=== PATIENT | female | born 1940 | race Caucasian/White ===

== ENCOUNTER → 2018-02-12 | Outpatient (CLI) | payer MEDICARE | END | disposition home or self-care (01) | LOC: RAH 08:31 | PROVIDERS: ATTEND Internal Medicine | DX: R92.8 Other abnormal and inconclusive findings on diagnostic imaging of breast (principal) | CPT/HCPCS: 77066 ==

== ENCOUNTER → 2018-02-16 | Outpatient (CLI) | payer MEDICARE | END | disposition home or self-care (01) | LOC: RAH 12:42 | PROVIDERS: ATTEND Internal Medicine | DX: M16.11 Unilateral primary osteoarthritis, right hip (principal) | CPT/HCPCS: 73502 ==

== ENCOUNTER 2018-09-18 12:27 | Observation (INO) | payer MEDICARE ==
[~2018-09-18] VITALS: Ht 170.2 cm; Wt 91.8 kg
[2018-09-18] MEDS ORDERED: SODIUM CHLORIDE 0.9% 1000ML 1,000 ML IV ONE (12:45)
[2018-09-18 13:05] LABS: BASOPHILS % (AUTO) 1.3 % (0.0-5.0); EOSINOPHILS % (AUTO) 4.6 % (0.0-8.0); HEMATOCRIT 39.7 % (36-48); LYMPHOCYTES % (AUTO) 38.3 % (21.0-51.0); MEAN CORPUSCULAR HEMOGLOBIN 30.2 pg (27.0-33.0); MEAN CORPUSCULAR HGB CONC 33.3 g/dL (32.0-36.0); MEAN CORPUSCULAR VOLUME 90.7 fL (79-99); MONOCYTES % (AUTO) 9.8 % (3.0-13.0); NUCLEATED RED BLOOD CELLS 0.1 % (0.0-0.19); PLATELET COUNT (AUTO) 205 K/uL (130-400); RED BLOOD CELL COUNT(AUTO) 4.38 MIL/uL (4.00-5.50); RED CELL DISTRIBUTION WIDTH 14.5 % (11.0-15.5); WHITE BLOOD COUNT (AUTO) 5.8 K/uL (4.8-10.8)
[2018-09-18 13:13] LABS: CREATININE 0.8 mg/dL (0.5-1.5); INR 0.95 (0.85-1.15); PARTIAL THROMBOPLASTIN TIME 26.4 SEC (26.3-35.5); POTASSIUM 4.2 mmol/L (3.5-5.1)
[2018-09-18 13:19] LABS: CREATINE KINASE, TOTAL 97 U/L (21-232); LDL DIRECT 84 mg/dL (0-99)
[2018-09-18 13:57] LABS: APPEARANCE,URINE Clear (CLEAR); BILIRUBIN,URINE Negative (NEGATIVE); COLOR,URINE Yellow (YELLOW); GLUCOSE, URINE (UA) Negative (NEGATIVE); KETONES,URINE Negative (NEGATIVE); LEUKOCYTE ESTERASE ,URINE Trace (NEGATIVE); NITRATE,URINE Negative (NEGATIVE); OCCULT BLOOD,URINE Negative (NEGATIVE); PH,URINE 5.5 (5.0-8.0); PROTEIN,URINE Negative (NEGATIVE)
[2018-09-18 14:05] LABS: AMPHET/METH SCREEN,URINE NEGATIVE (NEGATIVE); BARBITURATE SCREEN, URINE NEGATIVE (NEGATIVE); BENZODIAZEPINES SCREEN,URINE NEGATIVE (NEGATIVE); CANNABINOID SCREEN,URINE NEGATIVE (NEGATIVE); COCAINE SCREEN,URINE NEGATIVE (NEGATIVE); OPIATE SCREEN,URINE NEGATIVE (NEGATIVE); PHENCYCLIDINE SCREEN,URINE NEGATIVE (NEGATIVE)
[2018-09-18 14:21] LABS: RBC,URINE 0-1 /HPF (0-1); WBC,URINE 0-1 /HPF (0-1)
[2018-09-18 14:22] LABS: BACTERIA,URINE Few /HPF (None Seen)
[2018-09-18] MEDS ORDERED: LISI10TA7 PO (16:08)
[2018-09-18] MEDS ORDERED: LEVO75TA10 PO ×2 (16:11→16:13)
[2018-09-18] MEDS ORDERED: UBID30CA8 PO (16:11)
[2018-09-18] MEDS ORDERED: AEC81 PO (16:11)
[2018-09-18] MEDS ORDERED: DULO30CA52 PO (16:11)
[2018-09-18] MEDS ORDERED: OMEP-50 PO (16:11)
[2018-09-18] MEDS ORDERED: ATOR20TA65 PO (16:11)
[2018-09-18] MEDS ORDERED: METO-408 PO (16:11)
--- NOTE | 2018-09-18 21:00 | NUR ---
REPORT RECEIVED FROM MARGAUX LOPEZ.
[2018-09-18 21:10] VITALS: BP 190/82
--- NOTE | 2018-09-18 21:10 | NUR ---
PT ARRIVED FROM ER AT THIS TIME. PT IS STABLE. AMBULATORY. NO DISTRESS NOTED. AA03. PERRLA. NO NEURO DEFICITS. HOME MEDS PENDING. PT HAD EXPERIENCED SLURRED SPEECH AND LEFT SIDED WEAKNESS WHILE AT A [employer]. CURRENTLY EXPERIENCING NO ISSUES. NIH SCORE OF ZERO.
[2018-09-18 23:37] VITALS: BP 140/66
[2018-09-19 04:37] VITALS: BP 143/80
[2018-09-19 07:28] VITALS: BP 148/92
[2018-09-19] MEDS ORDERED: DULOXETINE HCL 30 MG CAP PO SCH (09:00)
[2018-09-19] MEDS ORDERED: LISINOPRIL 10 MG TABLET PO SCH (09:00)
[2018-09-19] MEDS ORDERED: PANTOPRAZOLE SODIUM 40 MG TABLET.DR PO PRN (09:00)
[2018-09-19] MEDS ORDERED: ASPIRIN 81 MG EC TAB PO SCH (09:00)
[2018-09-19] MEDS ORDERED: LEVOTHYROXINE 75 MCG TABLET PO SCH (09:06)
[2018-09-19] MEDS ORDERED: METOPROLOL TARTRATE 25 MG TAB PO SCH (09:07)
[2018-09-19] MEDS ORDERED: MAG HYDROX/AL HYDROX/SIMETH ES 30 ML SUSP UDCUP PO PRN (09:15)
[2018-09-19] MEDS ORDERED: ACETAMINOPHEN 325 MG TAB PO PRN ×2 (09:15)
[2018-09-19] MEDS ORDERED: LACTULOSE 20 GM/30 ML UDCUP PO PRN (09:15)
[2018-09-19] MEDS ORDERED: ONDANSETRON HCL 4 MG/2 ML VIAL IV PRN (09:15)
[2018-09-19 11:16] VITALS: BP 157/79
[2018-09-19] MEDS ORDERED: ATORVASTATIN CALCIUM 20 MG TABLET PO SCH (21:00)
== END 2018-09-19 12:58 | disposition home or self-care (01) ==
LOC: EDH 12:27 → EDHIP 13:35 → 2AH 21:04
PROVIDERS: ADMIT Internal Medicine; ATTEND Internal Medicine
DX: R47.01 Aphasia (principal); E03.9 Hypothyroidism, unspecified; E78.2 Mixed hyperlipidemia; E66.9 Obesity, unspecified; G31.9 Degenerative disease of nervous system, unspecified; G43.109 Migraine with aura, not intractable, without status migrainosus; G47.00 Insomnia, unspecified; E88.81 Metabolic syndrome and other insulin resistance; I12.9 Hypertensive chronic kidney disease with stage 1 through stage 4 chronic kidney disease, or unspecified chronic kidney disease; N18.2 Chronic kidney disease, stage 2 (mild); K21.9 Gastro-esophageal reflux disease without esophagitis; M19.90 Unspecified osteoarthritis, unspecified site; I65.23 Occlusion and stenosis of bilateral carotid arteries; F11.21 Opioid dependence, in remission; F32.9 Major depressive disorder, single episode, unspecified; F41.9 Anxiety disorder, unspecified; Z68.31 Body mass index [BMI] 31.0-31.9, adult; Z79.82 Long term (current) use of aspirin; Z90.710 Acquired absence of both cervix and uterus; Z96.641 Presence of right artificial hip joint; Z96.652 Presence of left artificial knee joint; Z98.1 Arthrodesis status; Z81.8 Family history of other mental and behavioral disorders; Z82.49 Family history of ischemic heart disease and other diseases of the circulatory system; Z82.5 Family history of asthma and other chronic lower respiratory diseases; Z79.899 Other long term (current) drug therapy; Z79.01 Long term (current) use of anticoagulants
CPT/HCPCS: 36415; 70450; 70551; 71045; 80048; 80305; 81001; 82550; 82948; 83721; 84484; 85025; 85610; 85730; 93005; 93880; 99291; G0378 ×23; J7030

== ENCOUNTER → 2019-12-15 | Outpatient (CLI) | payer MEDICARE ==
[~2019-12-15] MED LIST: AEC81 PO; ATOR20TA65 PO; DULO30CA52 PO; LEVO75TA10 PO; LISI10TA7 PO; METO-408 PO; OMEP20CA12 PO; UBID30CA8 PO
== END | disposition home or self-care (01) ==
LOC: RAH 12:33
PROVIDERS: ATTEND Internal Medicine
DX: Z12.31 Encounter for screening mammogram for malignant neoplasm of breast (principal)
CPT/HCPCS: 77067